=== PATIENT | female | born 1965 | race Caucasian/White ===

== ENCOUNTER 2022-10-21 23:00 | Emergency (ER) | payer OTHER ==
[2022-10-21 23:23] VITALS: BP 141/61; PULSE 66; RESP 17; TEMP 98; BMI 26.2
[2022-10-21] MEDS ORDERED: KETOROLAC TROMETHAMINE 30 MG/1 ML VIAL IM ONE (23:52)
[2022-10-21] MEDS ORDERED: LIDOCAINE 5% TOPICAL PATCH TP ONE (23:53)
[2022-10-21] MEDS ORDERED: LIDOCAINE 5% TOPICAL PATCH ONE (23:54)
[2022-10-21] MEDS ORDERED: KETOROLAC TROMETHAMINE 30 MG/1 ML VIAL ONE (23:55)
[2022-10-22 00:52] LABS: URINE APPEARANCE CLEAR; URINE BILIRUBIN NEGATIVE (NEGATIVE); URINE COLOR YELLOW; URINE GLUCOSE (UA) NEGATIVE (NEGATIVE); URINE KETONE NEGATIVE (NEGATIVE); URINE LEUK ESTERASE NEGATIVE (NEGATIVE); URINE NITRITE NEGATIVE (NEGATIVE); URINE PROTEIN NEGATIVE (NEGATIVE); URINE UROBILINOGEN 0.2 mg/dL (0.2-1.0)
[2022-10-22] MEDS ORDERED: diazePAM 5 MG TABLET PO ONE (01:31)
[2022-10-22] MEDS ORDERED: diazePAM 5 MG TABLET ONE (01:37)
[2022-10-22] MEDS ORDERED: LIDOCAINE PATCH REMOVAL MC ONE (12:00)
== END 2022-10-22 03:41 | disposition home or self-care (01) ==
LOC: JER 23:00
PROC: 3E023GC Introduction of Other Therapeutic Substance into Muscle, Percutaneous Approach (ICD-10-PCS; principal; 2022-10-21)
DX: M54.59 Other low back pain (principal)
CPT/HCPCS: 81003; 87086; 99284-25